=== PATIENT | male | born 1990 | race Caucasian/White ===

== ENCOUNTER 2020-03-27 22:28 | Emergency (ER) | payer MEDICARE, MEDICAID ==
[~2020-03-27] VITALS: Ht 162.6 cm; Wt 70.0 kg
[2020-03-27 22:39] VITALS: BP 104/71
[2020-03-28] MEDS ORDERED: diatr meglu/diatrizoate 30ml oral sol.-(3 dose) bottle ONE (01:20)
[2020-03-28] MEDS ORDERED: polyvinyl alcohol ophthalmic drops 15ml bottle EACHEYE PRN (03:30)
--- NOTE | 2020-03-28 03:39 | NUR ---
30 ml tap water flush after replacement
== END 2020-03-28 03:59 | disposition home or self-care (01) ==
LOC: ER 22:28
DX: Z43.1 Encounter for attention to gastrostomy (principal); G82.20 Paraplegia, unspecified; F79 Unspecified intellectual disabilities; Z86.69 Personal history of other diseases of the nervous system and sense organs; Z88.5 Allergy status to narcotic agent
CPT/HCPCS: 74018; 99284; Q9963

== ENCOUNTER 2020-07-26 08:09 | Day surgery (SDC) | payer MEDICARE, MEDICAID ==
[~2020-07-26] VITALS: Ht 152.4 cm; Wt 40.5 kg
[2020-07-26] MEDS ORDERED: fentaNYL/PF 50MCG/1 ML 2ML syringe ONE (08:38)
[2020-07-26] MEDS ORDERED: MIDAZolam 5mg/5ml vial ONE (08:38)
[2020-07-26] MEDS ORDERED: LIDOcaine Viscous 15ml cup ONE (08:39)
[2020-07-26 08:45] VITALS: BP 154/101
[2020-07-26] MEDS ORDERED: TIMO5SOL8 EACHEYE (08:50)
[2020-07-26] MEDS ORDERED: IBUP-2697 PEG (08:56)
[2020-07-26] MEDS ORDERED: MYL80T PO (08:58)
[2020-07-26] MEDS ORDERED: FAMO-128 PO (08:59)
[2020-07-26] MEDS ORDERED: BRIN8DRO EACHEYE (09:01)
[2020-07-26] MEDS ORDERED: POLY17PO10 PO (09:03)
[2020-07-26] MEDS ORDERED: LAMO150T6 PO (09:03)
[2020-07-26] MEDS ORDERED: LEVETIRACETA PEG (09:05)
[2020-07-26] MEDS ORDERED: DESMOPRESSIN (09:07)
[2020-07-26] MEDS ORDERED: NETA2.5D3 EACHEYE (09:08)
[2020-07-26] MEDS ORDERED: MELA5TAB12 PEG (09:09)
[2020-07-26] MEDS ORDERED: ACET-2119 PEG (09:10)
[2020-07-26] MEDS ORDERED: MAGN400O6 PEG (09:11)
[2020-07-26] MEDS ORDERED: BISA10SU62 RC (09:12)
[2020-07-26] MEDS ORDERED: NA P133E4 RC (09:13)
[2020-07-26] MEDS ORDERED: MULT-1085 PEG (09:15)
[2020-07-26 10:03] VITALS: BP 116/83
[2020-07-26 10:13] VITALS: BP 123/68
[2020-07-26 10:23] VITALS: BP 130/73
[2020-07-26 10:33] VITALS: BP 129/78
== END 2020-07-26 10:45 | disposition home or self-care (01) ==
LOC: GI LAB 08:09
PROVIDERS: ATTEND Internal Medicine Gastroenterology
DX: K94.23 Gastrostomy malfunction (principal); K92.0 Hematemesis; K20.80 Other esophagitis without bleeding; K31.89 Other diseases of stomach and duodenum; G47.30 Sleep apnea, unspecified; G80.9 Cerebral palsy, unspecified; Z88.2 Allergy status to sulfonamides; Z88.5 Allergy status to narcotic agent; Z79.899 Other long term (current) drug therapy; Y83.8 Other surgical procedures as the cause of abnormal reaction of the patient, or of later complication, without mention of misadventure at the time of the procedure; Y92.89 Other specified places as the place of occurrence of the external cause
CPT/HCPCS: 43246; G0500; J2250; J3010; J7040; 43235; 43762; 99152; A4620; B4087

== ENCOUNTER 2020-11-12 09:11 | Day surgery (SDC) | payer MEDICARE, MEDICAID ==
[~2020-11-12] VITALS: Ht 152.4 cm; Wt 40.5 kg
[~2020-11-12 09:11] MED LIST: ACET-2119 PEG; BISA10SU62 RC; BRIN8DRO EACHEYE; DESMOPRESSIN; FAMO-128 PO; IBUP-2697 PEG; LAMO150T6 PO; LEVETIRACETA PEG; MAGN400O6 PEG; MELA5TAB12 PEG; MULT-1085 PEG; NA P133E4 RC; NETA2.5D3 EACHEYE; POLY17PO10 PO; SIME80TA15 PO; TIMO5SOL8 EACHEYE
[2020-11-12 09:23] VITALS: BP 90/60
[2020-11-12] MEDS ORDERED: fentaNYL/PF 50MCG/1 ML 2ML syringe ONE (09:48)
[2020-11-12] MEDS ORDERED: MIDAZolam 1 MG/ML 5ML VIAL ONE (09:48)
[2020-11-12] MEDS ORDERED: LIDOcaine Viscous 15ml cup ONE (09:49)
[2020-11-12 10:45] VITALS: BP 158/76
[2020-11-12 10:55] VITALS: BP 107/68
[2020-11-12 11:05] VITALS: BP 119/72
[2020-11-12 11:15] VITALS: BP 122/77
== END 2020-11-12 11:35 | disposition home or self-care (01) ==
LOC: GI LAB 09:11
PROVIDERS: ATTEND Internal Medicine Gastroenterology
DX: K92.2 Gastrointestinal hemorrhage, unspecified (principal); K20.80 Other esophagitis without bleeding; K29.60 Other gastritis without bleeding; Z93.1 Gastrostomy status; Z88.2 Allergy status to sulfonamides; Z88.5 Allergy status to narcotic agent; Z79.899 Other long term (current) drug therapy
CPT/HCPCS: 43239; G0500; J2250; J3010; J7040; 99152; A4620

== ENCOUNTER 2021-03-31 18:20 | Inpatient (IN) | payer MEDICARE, MEDICAID ==
[~2021-03-31] VITALS: Ht 157.5 cm; Wt 48.2 kg
[~2021-03-31 18:20] MED LIST changes: -IBUP-2697 PEG
[2021-03-31] MEDS ORDERED: normal saline 1000ml 1,000 ML IV ONE (18:30)
[2021-03-31 18:50] LABS: BASOPHILS # (AUTO) 0.1 X10'3 (0-0.2)
[2021-03-31 18:51] LABS: BASOPHILS % (AUTO) 0.3 % (0-1); EOSINOPHILS # (AUTO) 0.1 X10'3 (0-0.9); EOSINOPHILS % (AUTO) 0.4 % (0-6); LYMPHOCYTES # (AUTO) 4.8 X10'3 (1.1-4.8); LYMPHOCYTES % (AUTO) 27.4 % (21-51); MONOCYTES # (AUTO) 0.5 X10'3 (0-0.9); MONOCYTES % (AUTO) 2.8 % (2-12); NEUTROPHILS % (AUTO) 69.1 % (42-75); PLATELET COUNT 236 X10'3 (140-440)
[2021-03-31 19:03] LABS: D-DIMER 27.62 MG/L FEU (0-0.50); PARTIAL THROMBOPLASTIN TIME 31 SECONDS (22-32)
[2021-03-31 19:13] LABS: ALBUMIN 2.5 G/DL (3.4-5.0); ALBUMIN/GLOBULIN RATIO 0.6 (1.1-1.5); ALKALINE PHOSPHATASE 183 IU/L (46-116); ANION GAP 27 (8-16); ASPARTATE AMINO TRANSFERASE 261 U/L (10-37); BILIRUBIN,TOTAL 0.2 MG/DL (0.1-1.0); BLOOD UREA NITROGEN 24 MG/DL (7-18); BUN/CREATININE RATIO 18.6 (5.4-32.0); C-REACTIVE PROTEIN 0.15 MG/DL (0.0-0.5); CALCIUM 8.8 MG/DL (8.5-10.1); CHLORIDE 109 MMOL/L (99-107); CKMB RELATIVE INDEX 1.5 RATIO (0-2.5); CREATINE KINASE 136 U/L (39-308); CREATININE 1.29 MG/DL (0.60-1.10); GLUCOSE 333 MG/DL (70-104); LIPASE 102 U/L (73-393); POTASSIUM 3.2 MMOL/L (3.5-5.1); TOTAL PROTEIN 6.7 G/DL (6.4-8.2); eGFR 65 ML/MIN
[2021-03-31] MEDS ORDERED: normal saline 1000ML IV soln IVB ONE ×3 (19:35→20:25)
[2021-03-31 19:42] LABS: SODIUM 155 MMOL/L (135-145)
[2021-03-31 19:47] LABS: HEMOGLOBIN 12.3 g/dl (14.0-17.9); MEAN CORPUSCULAR VOLUME 88.4 FL (78-98); RED BLOOD COUNT 4.29 X10'6 (4.70-6.10); WHITE BLOOD COUNT 17.4 X10'3 (4.5-11.0)
[2021-03-31 19:48] LABS: MEAN CORPUSCULAR HEMOGLOBIN 28.7 PG (27.0-31.0); MEAN CORPUSCULAR HGB CONC 32.5 g/dL (33.0-36.5); RED CELL DISTRIBUTION WIDTH 14.4 % (11.5-14.5)
[2021-03-31 19:50] LABS: ALANINE AMINOTRANSFERASE 282 U/L (12-78); MYOGLOBIN 116 ng/ml (16-96)
--- NOTE | 2021-03-31 20:07 | NUR ---
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
[2021-03-31 20:21] LABS: CLARITY,URINE SLIGHTLY CLOUDY (Clear); COLOR,URINE YELLOW (Yellow); UA COLLECTION TYPE FOLEY CATH
[2021-03-31 20:22] LABS: GLUCOSE, URINE NEGATIVE (Neg); KETONES,URINE NEGATIVE (Neg); LEUKOCYTE ESTERASE ,URINE NEGATIVE (Neg); NITRITES, URINE NEGATIVE (Neg); OCCULT BLOOD,URINE SMALL (Neg); PROTEIN,URINE 100 mg/dl (Neg); UROBILINOGEN,URINE 0.2 E.U/dL (0.2-1.0)
[2021-03-31 20:24] LABS: HYALINE CASTS 0-3 /LPF (NEGATIVE); SQUAMOUS EPITHELIAL CELL,UR FEW /LPF (FEW)
[2021-03-31 20:25] LABS: URINE AMPHETAMINE SCREEN NEGATIVE (Neg); URINE BARBITUATE SCREEN NEGATIVE (Neg); URINE BENZODIAZEPINES SCREEN NEGATIVE (Neg); URINE CANNABINOID SCREEN NEGATIVE (Neg); URINE COCAINE SCREEN NEGATIVE (Neg); URINE METHADONE SCREEN NEGATIVE (Neg); URINE OPIATE SCREEN NEGATIVE (Neg); URINE PHENCYCLIDINE SCREEN NEGATIVE (Neg)
[2021-03-31 20:25] LABS: BACTERIA,URINE 2+ /HPF (Neg)
[2021-03-31] MEDS ORDERED: potassium Cl 20 mEq SR tablet PO PRN ×2 (20:25)
[2021-03-31] MEDS ORDERED: ondansetron/PF 4mg/2ml inj IV PRN (20:25)
[2021-03-31] MEDS ORDERED: NOREPINEPHRINE BITARTRATE/D5W 250 ML IV PRN (20:25)
[2021-03-31] MEDS ORDERED: NORepinephrine 8mg/ 250ml NS 250 ML IV PRN ×2 (20:25→20:30)
[2021-03-31] MEDS ORDERED: acetaminophen 325mg tablet PO PRN ×2 (20:25)
[2021-03-31] MEDS ORDERED: magnesium hydroxide 30ml (MOM) UD suspension PO PRN (20:25)
[2021-03-31 20:27] LABS: MUCUS STRANDS FEW /LPF (Neg)
[2021-03-31] MEDS ORDERED: CefTRIAXone/D5W-Rocephin 1gm 50 ML IV ONE (20:40)
[2021-03-31] MEDS ORDERED: fentaNYL/PF 50MCG/1 ML 2ML syringe IV PRN (20:40)
[2021-03-31] MEDS ORDERED: iohexol 350MG/ML 100ml bottle IV ONE (20:43)
--- NOTE | 2021-03-31 21:26 | NUR ---
DR BEGUM ADVISED OF PT STATUS, SPO2 DROPPING, RT AT BEDSIDE ADJUSTING VENT AND DOING REPEAT ABG. PT STILL UNRESPONSIVE AND ON VENTILATOR. 5L NS GIVEN, 0,25 PUSH DOSE EPI GIVEN WITH BRIEF IMPROVEMENT IN BP. LEVOPHED RUNNING AT 1MCG/KG/MIN WITH NO IMPROVMENT IN BP. CURRENT IS 54/24.
--- NOTE | 2021-03-31 21:35 | NUR ---
2ND DOSE OF 0,.25 EPI GIVEN AND AMP OF BICARB. REPEAT BP 71/30 JUST AFTER. HR 113, SPO2 82 ON 100%FIO2
--- NOTE | 2021-03-31 21:39 | NUR ---
PT MOTHER AT BEDSIDE.
--- NOTE | 2021-03-31 22:09 | NUR ---
DR BEGUM TO PUTTING IN CENTRAL LINE TO RIGHT SIDE OF NECK.
[2021-03-31] MEDS ORDERED: vancomycin/NS 1 GM ADD-VANTAGE 250 ML IV ONE (22:20)
--- NOTE | 2021-03-31 22:52 | NUR ---
TRIED CALLING DR CARPENTER AND LEFT MESSAGE.
[2021-03-31] MEDS: albuterol 2.5 MG/3 ML nebule NEB SCH (23:00)
[2021-03-31] MEDS ORDERED: morphine 4 MG/ML inj SYRINge IM ONE (23:20)
[2021-03-31] MEDS ORDERED: morphine 4 MG/ML inj SYRINge IV ONE ×2 (23:25)
--- NOTE | 2021-03-31 23:25 | NUR ---
PT LEVOPHED ATTACHED TO CENTRAL LINE WITH POSITIVE PLACEMENT OF CENTRAL LINE. PT BP NOT IMPROVING AT THIS TIME. CURRENT BP 46/17. DR BEGUM SPOKE WITH PT MOTHER WHO IS CONSERVATOR WHO STATES SHE WOULD LIKE TO HAVE PT PASS AWAY WITHOUT ANY INTERVENTIONS. PT HAS HAD 5 RUNNY BOWEL MOVEMENTS. PT MOTHER WELL NURSE FOR PRISON DENY ANY RECENT ANTIBIOTICS OR ILLNESS.
[2021-03-31] MEDS ORDERED: morphine 10mg/ml inj. IV ONE (23:35)
--- NOTE | 2021-03-31 23:44 | NUR ---
RECTAL TUBE PLACED AND PT GIVEN MORPHINE, TWO DOSES. PT MOTHER ADVISED TO TURN OFF LEVOPHED DRIP. TIME OF 4233
[2021-03-31 23:45] VITALS: BP 0/0
[2021-04-01 00:01] LABS: PLATELET ESTIMATE NORMAL
[2021-04-01 00:02] LABS: LARGE PLATELETS FEW
--- NOTE | 2021-04-01 01:06 | NUR ---
PT MOTHER AT BEDSIDE ADVISED TO USE ADAM AND CASEY FOR CREAMATION. ORGAN DONOR CONTACTED, CORONERS OFFICE ADVISED IT IS NOT A CASE, [facility] NOTIFIED
--- NOTE | 2021-04-01 01:48 | NUR ---
ADAM AND CASEY AT BEDSIDE
[2021-04-01] MEDS: albuterol 2.5 MG/3 ML nebule NEB SCH (03:00)
[2021-04-01 06:12] LABS: ABG BASE EXCESS -16.3 mmol/L (-2.0-2.0); ABG HCO3 11.4 mmol/L (22.0-26.0); ABG OXYGEN SATURATION 97.6 % (94-97); ABG PCO2 (T) 33.6 mmHg (35.0-48.0); ALLEN'S TEST POSITIVE; FCOHb 0.3 % (0.0-3.9); FMetHb 0.3 % (0.0-1.5); TOTAL HEMOGLOBIN 12.2 G/dl (14.0-18.0)
[2021-04-01] MEDS ORDERED: enoxaparin 40mg/0.4ml syringe SQ SCH (20:00)
[2021-04-02] MEDS ORDERED: mineral oil/petrolatum ophthal oint EACHEYE SCH (02:00)
== END 2021-04-01 06:41 ==
LOC: ER 18:20 → ED HOLD 20:38
PROVIDERS: ADMIT Internal Medicine Critical Care Medicine; ATTEND Internal Medicine Critical Care Medicine
PROC: 5A1935Z Respiratory Ventilation, Less than 24 Consecutive Hours (ICD-10-PCS; principal; 2021-03-31)
PROC: 0BH17EZ Insertion of Endotracheal Airway into Trachea, Via Natural or Artificial Opening (ICD-10-PCS; 2021-03-31)
PROC: B32T1ZZ Computerized Tomography (CT Scan) of Left Pulmonary Artery using Low Osmolar Contrast (ICD-10-PCS; 2021-03-31)
PROC: B3201ZZ Computerized Tomography (CT Scan) of Thoracic Aorta using Low Osmolar Contrast (ICD-10-PCS; 2021-03-31)
PROC: B32S1ZZ Computerized Tomography (CT Scan) of Right Pulmonary Artery using Low Osmolar Contrast (ICD-10-PCS; 2021-03-31)
PROC: B4201ZZ Computerized Tomography (CT Scan) of Abdominal Aorta using Low Osmolar Contrast (ICD-10-PCS; 2021-03-31)
PROC: B4241ZZ Computerized Tomography (CT Scan) of Superior Mesenteric Artery using Low Osmolar Contrast (ICD-10-PCS; 2021-03-31)
PROC: B4281ZZ Computerized Tomography (CT Scan) of Bilateral Renal Arteries using Low Osmolar Contrast (ICD-10-PCS; 2021-03-31)
PROC: B42C1ZZ Computerized Tomography (CT Scan) of Pelvic Arteries using Low Osmolar Contrast (ICD-10-PCS; 2021-03-31)
PROC: B42H1ZZ Computerized Tomography (CT Scan) of Bilateral Lower Extremity Arteries using Low Osmolar Contrast (ICD-10-PCS; 2021-03-31)
PROC: B4211ZZ Computerized Tomography (CT Scan) of Celiac Artery using Low Osmolar Contrast (ICD-10-PCS; 2021-03-31)
PROC: 02HV33Z Insertion of Infusion Device into Superior Vena Cava, Percutaneous Approach (ICD-10-PCS; 2021-03-31)
PROC: 5A12012 Performance of Cardiac Output, Single, Manual (ICD-10-PCS; 2021-03-31)
DX: I21.11 ST elevation (STEMI) myocardial infarction involving right coronary artery (principal); I46.9 Cardiac arrest, cause unspecified; R31.9 Hematuria, unspecified; G80.9 Cerebral palsy, unspecified; Z96.1 Presence of intraocular lens; Z20.822 Contact with and (suspected) exposure to COVID-19; Z51.5 Encounter for palliative care; Z88.5 Allergy status to narcotic agent; Z88.2 Allergy status to sulfonamides; Z98.42 Cataract extraction status, left eye; Z98.41 Cataract extraction status, right eye; Z79.899 Other long term (current) drug therapy
CPT/HCPCS: 36415; 36600; 70450; 71045; 71275; 74174; 80053; 80305; 81001; 82550; 82553; 82803; 83605; 83690; 83735; 83874; 84145; 84484; 85008; 85018; 85025; 85379; 85610; 85651; 85730; 86140; 86885; 86900; 86901; 87040; 87077; 87088; 87186; 87635; 93005; 94002; 94760; 99285; C9803; G0378; J0696; J2270; J3370; J7030; Q9967